=== PATIENT | female | born 1965 | race African-American/Black ===

== ENCOUNTER 2025-01-30 17:16 | Emergency (ER) | payer MEDICAID, OTHER ==
[~2025-01-30] VITALS: Ht 175.3 cm; Wt 150.0 kg
[~2025-01-30 17:16] MED LIST: ALBU18HF2 IH; FLUT1DIS3 INH; P20 MT
[2025-01-30 17:24] VITALS: O2SAT 93
[2025-01-30 17:28] VITALS: TEMP 36.6; O2SAT 97
[2025-01-30 18:00] LABS: HEMATOCRIT. 33.7 % (36.0-48.0); HEMOGLOBIN. 10.5 g/dL (12.0-16.0); MEAN CORPUSCULAR HEMOGLOBIN 25.6 pg (28.0-32.0); MEAN CORPUSCULAR VOLUME 82.4 fL (81.0-99.0); MEAN PLATELET VOLUME 9.7 fl (7.4-10.4); PLATELET 262 x1000/uL (130-400); RED BLOOD CELL COUNT 4.09 mill/uL (4.2-5.4); RED CELL DISTRIBUTION WIDTH 20.5 % (11.6-14.6); WHITE BLOOD COUNT 10.8 x1000/uL (4.5-11.0)
[2025-01-30 18:02] LABS: DIFFERENTIAL COMMENT 1
[2025-01-30 18:06] LABS: CHLORIDE 108 mEq/L (98-107); POTASSIUM 4.3 mEq/L (3.5-5.1); SODIUM 138 mEq/L (136-145)
[2025-01-30 18:07] LABS: CARBON DIOXIDE 21 mEq/L (21-32)
[2025-01-30 18:08] LABS: CALCIUM 10.2 mg/dL (8.7-10.4)
[2025-01-30 18:12] LABS: GLUCOSE 125 mg/dL (70-105)
[2025-01-30 18:13] LABS: UREA NITROGEN BLOOD 15 mg/dL (9-23)
[2025-01-30 18:21] LABS: PLATELET ESTIMATE NORMAL
[2025-01-30 19:17] VITALS: BP 103/69; PULSE 119; RESP 20
[2025-01-30] MEDS: IBUPROFEN 600MG TABLET PO ONE (19:17)
[2025-01-30] MEDS ORDERED: IBUP-2029 MT (19:48)
== END 2025-01-30 20:01 | disposition home or self-care (01) ==
LOC: ER 17:16
DX: R06.02 Shortness of breath (principal); D25.9 Leiomyoma of uterus, unspecified; D64.9 Anemia, unspecified; N93.9 Abnormal uterine and vaginal bleeding, unspecified; E87.8 Other disorders of electrolyte and fluid balance, not elsewhere classified; I50.9 Heart failure, unspecified; J44.9 Chronic obstructive pulmonary disease, unspecified; Z79.51 Long term (current) use of inhaled steroids
CPT/HCPCS: 80048; 85025; 36415; 71045; 76856; 93005; 99285; Z7610 ×3; A4606